=== PATIENT | male | born 1940 | race Caucasian/White ===

== ENCOUNTER 2021-11-17 15:06 | Inpatient (IN) ==
--- NOTE | 2021-11-17 15:45 | Internal Med History&Physical ---
HPI History of Present Illness Patient information: Note initiated : 11/17/21 at 3:35 pm Service Date, if different from initiated Date: [] Patient: Bryan Christianson a 81 y/o M admitted on for Urosepsis. Chief Complaint: [fever and chills] Chief complaint: fever and chills History of present illness: Mr. Christianson is a 81 year old M history of ischemic cardiomyopathy, presenting to an ER in [place], [place] with a chief complaint of subjective fever and chills. The diagnosis of right 3 mm distal ureteral stone with obstructions with resultant right hydroureter and hydronephrosis, acute kidney injury, urosepsis will call. Patient denies any chest pain and serum troponin downtrending. Outside ER physician spoke with our urologist Dr. Sanchez who agreed to take the patient to the OR for ureteral stone retrieval. I am going to admit the patient for further management of urosepsis as well as acute kidney injury. Constitutional Constitutional: Present chills, fever(s) and weakness; Absent excessive sweating or fatigue EENT Eyes: Absent blurry vision, change in vision, loss of vision or other visual dis turbances Ears: Absent decreased hearing or tinnitus Nose, mouth and throat: Absent abnormal hearing, dry mouth, headache(s), nasal congestion or sore throat Cardiovascular Cardiovascular: Absent chest pain, chest pain at rest, edema, irregular heart rhythm or palpatations Respiratory Respiratory: Absent cough, dyspnea or wheezing Gastrointestinal Gastrointestinal: Absent abdominal pain, constipation, diarrhea, nausea or vomiting Musculoskeletal Musculoskeletal: Absent back pain, deformity, limited range of motion, muscle cramps, muscle weakness or numbness Integumentary Integumentary: Absent lesions, rash or wounds Neurological Neurological: Absent focal weakness, headache(s) or numbness Psychiatric Psychiatric: Absent anxiety, depression or hallucinations PFSH PFSH All Active Problems (Updated 11/17/21 @ 15:42 by Shar Jay MD) Ischemic cardiomyopathy (Acute) Stage 1 acute kidney injury (Acute) Hydronephrosis of right kidney (Acute) Right distal ureteral calculus (Acute) Severe sepsis (Acute) UTI (urinary tract infection) (Acute) EXAM Constitutional General appearance: cooperative and no acute distress Head Head exam: Present atraumatic and normocephalic Eye Eye exam: Present EOMI and PERRL ENT ENT exam: Present mucous membranes moist, normal exam and normal external ear exam Neck Neck exam: Present normal inspection; Absent lymphadenopathy, tenderness or thyromegaly Respiratory Respiratory exam: Absent accessory muscle use, respiratory distress or wheezes Cardiovascular Cardiovascular exam: Present normal rate and rhythm; Absent JVD GI/Abdominal GI/Abdominal exam: Present normal bowel sounds and soft; Absent organomegaly or tenderness Rectal Rectal exam: Present deferred Extremities Exam Extremities exam: Present full ROM, normal capillary refill and normal inspectio n; Absent tenderness Neurological Exam Neurological exam: Present alert, CN II-XII intact and oriented X3; Absent motor sensory deficit Psychiatric Psychiatric exam: Present normal affect and normal mood; Absent anxious or depressed Skin Skin exam: Present dry and intact A/P Assessment and plan (1) UTI (urinary tract infection): Status: Acute (2) Severe sepsis: Status: Acute (3) Right distal ureteral calculus: Status: Acute (4) Hydronephrosis of right kidney: Status: Acute (5) Stage 1 acute kidney injury: Status: Acute (6) Ischemic cardiomyopathy: Status: Acute Narrative A/P Narrative: Assessment and Plans: 1. Right distal ureteral stone with obstruction and resultant right hydronephrosis and hydroureter: Inpatient PCU Consulting Dr. Sanchez for surgical management stone retrieval 2. UTI with severe sepsis: Serial lactic acid Procalcitonin Blood culture Urine culture cbc w/ auto diff in the morning to trend WBC s/p 3L fluid bolus given in the ED, to be followed by NS@100cc/hr Rocephin 3. Stage 1 acute kidney injury: Avoid nephrotoxic agents s/p 3L fluid bolus given in the ED, to be followed by NS@100cc/hr CMP in the morning to trend kidney functions 4. Ischemic cardiomyopathy, recent: Currently asymptomatic, no chest pain no shortness of breath Serial troponin Serial ECG GI ppx: not currently indicated DVT ppx: SCDs Code status: Full Prognosis: Extremely guarded Disposition: inpatient PCU Time Spent With Patient Time: Total time spent is greater than 50% in coordination of care (as documented) at patient's floor/unit and/or counseling patient: Total time spent with greater than 50% in coordination of care (as documented) at patient's floor/unit and/or counseling patient:: 50 - 70 minutes
[2021-11-17] MEDS ORDERED: SENNOSIDES 1 TABLET PO PRN (17:12)
[2021-11-17] MEDS ORDERED: oxyCODONE/APAP 5/325MG TABLET PO PRN (17:12)
[2021-11-17] MEDS ORDERED: IPRATROPIUM/ALBUTEROL 3 ML AMPUL.NEB NEB PRN ×2 (17:12→19:38)
[2021-11-17] MEDS ORDERED: LACTULOSE 20 GM/30 ML ORAL.SOL PO PRN (17:12)
[2021-11-17] MEDS ORDERED: ONDANSETRON 4 MG/2 ML VIAL IV PRN ×2 (17:12→19:38)
[2021-11-17] MEDS ORDERED: morphine 2 MG/ML VIAL IV PRN (17:12)
[2021-11-17] MEDS ORDERED: cefTRIAXone 2 GM in DEXTROSE 5% IN WATER 50 ML IV SCH (17:12)
[2021-11-17] MEDS ORDERED: cefTRIAXone 1 GM VIAL IV ONE (17:26)
--- NOTE | 2021-11-17 17:36 | Urology History & Physical ---
HPI History of Present Illness Patient information: Note initiated : 11/17/21 at 5:31 pm Service Date, if different from initiated Date: [] Patient: Bryan Christianson 81 y/o M admitted on for Urosepsis. Chief Complaint: [Urosepsis and right distal ureteral stone with obstruction] Chief complaint: Urosepsis and right distal ureteral stone with obstruction History of present illness: Mr. Christianson is a 81 year old male who was transferred from [place] today with a history of urosepsis and a finding of a 3 mm right distal ureteral vesicle junction stone with proximal right hydronephrosis and right flank pain. He was admitted to our hospitalist service. He has a history of ischemic cardiomyopathy and presented to the ER in [place] with complaints of fever and chills. He was seen to have an acute kidney injury with urosepsis. I have personally reviewed his films. Review of Systems All systems: reviewed and no additional remarkable complaints except as stated Constitutional Constitutional: Present chills and fever(s) Genitourinary Genitourinary: flank pain PFSH PFSH All Active Problems (Updated 11/17/21 @ 17:34 by Singh Sanchez MD) Right flank pain (Acute) UTI (urinary tract infection) (Acute) Severe sepsis (Acute) Right distal ureteral calculus (Acute) Hydronephrosis of right kidney (Acute) Stage 1 acute kidney injury (Acute) Ischemic cardiomyopathy (Acute) MEDS/ALLERGIES Home Medications and Allergies Home Medications Medication Instructions Recorded Confirmed Type amiodarone 200 mg tablet (Pacerone) 200 tab PO BID 11/17/21 11/17/21 History apixaban 5 mg tablet (Eliquis) 1 tab PO BID 11/17/21 11/17/21 History atorvastatin 40 mg tablet (Lipitor) 40 tab PO QAM 11/17/21 11/17/21 History clopidogrel 75 mg tablet (Plavix) 1 tab PO QDAY 11/17/21 11/17/21 History nitroglycerin 0.4 mg sublingual 0.4 tab sublingual Q5MINP PRN 11/17/21 11/17/21 History tablet (Nitrostat) Angina oxycodone 5 mg tablet (Roxicodone) 5 tab PO Q6HP PRN Pain 11/17/21 11/17/21 History pantoprazole 40 mg tablet,delayed 1 tab PO BID 11/17/21 11/17/21 History release (Protonix) potassium chloride 20 mEq 20 meq PO BIDAC 11/17/21 11/17/21 History tablet,extended release(part/cryst) (Klor-Con M) Allergies Allergy/AdvReac Type Severity Reaction Status Date / Time codeine AdvReac Mild Itching Verified 11/17/21 17:27 hydrocodone AdvReac Mild Itching Verified 11/17/21 17:27 Physical Examination General physical appearance General physical exam: well developed and well nourished Head Head exam IM: Present atraumatic, normal inspection and normocephalic Neck Neck exam: trachea midline Cardiovascular Cardiovascular exam IM: Present normal rate and rhythm Respiratory Respiratory exam: normal expansion, normal respiratory effort and clear to auscultation Abdomen Abdomen: Present soft and non tender Results Labs Labs: All other labs normal. Imaging CT scan - abdomen: report reviewed and image reviewed CT scan - pelvis: report reviewed and image reviewed A/P Assessment and plan (1) Right distal ureteral calculus: Status: Acute (2) Hydronephrosis of right kidney: Status: Acute (3) Right flank pain: Status: Acute (4) Severe sepsis: Status: Acute Sepsis Sepsis Identified: Yes Time Zero: At [facility] Narrative A/P Narrative: Bryan is an 81-year-old male with history of urosepsis and an obstructing right distal ureteral stone causing right flank pain and right hydronephrosis. He was transferred here from the ER in [place], [place] due to no access to urology. The patient was admitted to our hospitalist service. We discussed going to the operating room urgently for cystoscopy, right retrograde pyelogram, right ureteroscopy, possible right ureteral stone basketing, and right ureteral stent placement. He also has a history consistent with ischemic cardiomyopathy. he appeared to have demand ischemic non-q wave DE. We discussed going to the operating room and under general anesthesia, as an outpatient, performing cystoscopy, right retrograde pyelogram, right ureteroscopy, right laser lithotripsy, right ureteral stone basketing, and right ureteral stent placement. I discussed the procedure with the patient. We discussed possible risks and side effects including, but not limited to: bleeding, infection, damage to the urethra and to the bladder, damage to the right ureter and right kidney, postoperative urgency and frequency, postoper ative hematuria, incomplete treatment of the stone, need for further treatment and/or surgery, small risks of heart attack, stroke and , and risks of anesthesia that he will discuss separately with the anesthesia provider prior to the procedure. He understands that at the time of the procedure we will place a right ureteral stent. I explained what this is and that it is a temporary device. This will need to be removed in the office approximately 1 week after definitive treatment of the stone. He understands the procedure and its associated risks. The patient agrees and a signed consent form was obtained. Time Spent With Patient Time: Total time spent is greater than 50% in coordination of care (as documented) at patient's floor/unit and/or counseling patient: Total time spent with greater than 50% in coordination of care (as documented) at patient's floor/unit and/or counseling patient:: 15 - 24 minutes Critical Care Time: No
[2021-11-17] MEDS: 0.9 % SODIUM CHLORIDE 1,000 ML IV SCH (17:57)
--- NOTE | 2021-11-17 18:51 | XRay Report ---
INDICATION: pre surgery room 120 d TECHNIQUE: AP portable semiupright chest x-ray COMPARISON: Previous chest x-ray dated 11/16/2021 FINDINGS: Lungs:No parenchymal consolidation or mass. Heart, vascular:No significant cardiomegaly. Pulmonary vascularity is normal. No pulmonary edema or pulmonary congestion Mediastinum, alexus:No mediastinal widening. No hilar mass Pleura:No pleural fluid. No pleural-based mass or calcification Skeletal:Negative. IMPRESSION: No acute abnormality Interpreted and Authenticated by: Darinel Gabriel 11/17/21
[2021-11-17] MEDS ORDERED: IOVERSOL 20 ML VIAL IV ONE (19:00)
[2021-11-17] MEDS ORDERED: LIDOCAINE HCL/PF 100 MG/5 ML SYRINGE IV ONE (19:17)
[2021-11-17] MEDS ORDERED: PROPOFOL 200 MG/20 ML VIAL IV ONE (19:17)
[2021-11-17] MEDS ORDERED: PHENYLephrine 1 MG/10 ML SYRINGE (ANEST) ONE (19:17)
[2021-11-17] MEDS ORDERED: ONDANSETRON 4 MG/2 ML VIAL ONE (19:17)
[2021-11-17] MEDS ORDERED: KETAMINE 50 MG/ML Syringe (ANEST) IV ONE (19:17)
[2021-11-17] MEDS ORDERED: ePHEDrine 50 MG/5 ML SYRINGE (ANEST) IV ONE (19:17)
[2021-11-17] MEDS ORDERED: fentaNYL 100 MCG/2 ML VIAL IV ONE (19:17)
[2021-11-17] MEDS ORDERED: MAGNESIUM SULFATE 2 GM/50 ML BAG IV ONE (19:17)
[2021-11-17] MEDS ORDERED: NALOXONE HCL 0.4 MG/ML VIAL IV PRN (19:38)
[2021-11-17] MEDS ORDERED: diphenhydrAMINE 50 MG/ML VIAL IV PRN (19:38)
[2021-11-17] MEDS ORDERED: PROMETHAZINE 25 MG/ML VIAL IV PRN (19:38)
[2021-11-17] MEDS ORDERED: ACETAMINOPHEN 1,000 MG/100 ML BAG IV ONE ×2 (19:38→20:26)
[2021-11-17] MEDS ORDERED: LACTATED RINGERS 250 ML IV PRN (19:38)
[2021-11-17] MEDS ORDERED: MEPERIDINE 25 MG/ML VIAL IV PRN (19:38)
[2021-11-17] MEDS ORDERED: LACTATED RINGERS 1,000 ML IV SCH (19:45)
--- NOTE | 2021-11-17 20:56 | Operative Note ---
Brief Operative Note Date of procedure: 11/17/21 Pre-op diagnosis: Urosepsis secondary to obstructing 3 mm right distal ureteral stone Post-op diagnosis: same Procedure: Difficult cystoscopy, right retrograde pyelogram, right ureteroscopy, right ureteral stone basketing, and right ureteral stent placement. Grafts/Implants: Yes (6 x 26 cm right ureteral stent with no string and 22 Gibraltarian Eden catheter ) Anesthesia: GLMA Findings: 3 mm obstructing right distal ureteral stone removed Complications: none Surgeon: Singh Sanchez Estimated blood loss (cc): 20 Specimens Removed/Pathology: other (Stone for analysis) Condition: critical Disposition: ICU Operative Note Operative Note: After obtaining informed consent from the patient, he was brought to the operating room was placed prone on the operating table. General anesthesia was provided. He was repositioned in a dorsolithotomy position was prepped and draped in usual sterile fashion. Attention was directed to the urethral meatus where a 21 Gibraltarian cystoscope was passed per urethra into the bladder. The bladder was inspected and seen to have severe trabeculation with the formation of numerous saccules. Ureteral orifices were very difficult were identified due to bleeding from the bladder neck. For over an hour I made multiple attempts to cannulate the right ureteral orifice. On 2 occasions I was able to get an opening ureteral catheter into the right ureteral orifice and perform a right retrograde pyelogram which showed just a tiny wisp of contrast going alongside what appeared to be an obstructing stone. There was proximal ureterectasis and hydronephrosis. Attempts were made to pass a 0.35 Gibraltarian Sensor wire and it 0.35 Gibraltarian angled tipped Glidewire through the opening ureteral catheter and alongside the stone and these attempts were unsuccessful. I was ready to give up when I decided to give it 1 more try and I was able to manipulate the angle- tip Glidewire through the right ureteral orifice and into what appeared to be the right ureter. I passed a dual-lumen catheter over this wire and performed a right retrograde pyelogram and it appeared to be in proper position. I then removed the cystoscope leaving the wire in place. I passed a 6 Gibraltarian semirigid long ureteroscope alongside the wire and into the right ureteral orifice with difficulty. Approximately 2 cm above the right ureteral orifice I identified a round 3 mm stone that appeared to be obstructing using a 1.9 Gibraltarian nitinol tipless basket the stone was grasped and removed from the bladder intact and passed off the table as a specimen for stone analysis. As I was at that point certainly the wire was in the proper position I replaced it with a 0.35 Gibraltarian sensor wire. I then backloaded the wire through the 21 Gibraltarian cystoscope which was passed into the bladder. A 6 Gibraltarian by 26 cm regular stent with no string was then passed over the wire and under fluoroscopic guidance into the right upper pole. The wire was removed leaving a good curl the right upper pole and a good curl within the bladder. Bladder was irrigated and drained. There was still bleeding from the bladder neck as the patient is on Eliquis and clopidogrel. A 22 Gibraltarian Eden catheter was then placed and balloon was inflated with 10 mL of sterile water and this was placed at the bladder neck to help tamponade the bleeding. The catheter was then hand irrigated until it ran clear. This was placed to gravity drainage. The patient was then returned to the supine position. He was awakened returned to the recovery room in critical condition.
[2021-11-17] MEDS: 0.9 % SODIUM CHLORIDE 10 ML SYRINGE IV SCH (22:10)
[2021-11-18] MEDS: DOCUSATE SODIUM 100 MG CAPSULE PO SCH ×3 (00:12→20:09)
[2021-11-18] MEDS: 0.9 % SODIUM CHLORIDE 10 ML SYRINGE IV SCH ×5 (00:12→20:09)
--- NOTE | 2021-11-18 05:51 | XRay Report ---
INDICATION: CYSTOSCOPY WITH RETROGRADE PYELOGRAMS RIGHT, STENT TECHNIQUE: Intraoperative fluoroscopy and spot films utilized by Dr. Sanchez. 2.2 minutes fluoroscopy and 24.2 mCi exposure used. Right ureteral stent was placed IMPRESSION: Intraoperative fluoroscopy and spot films Interpreted and Authenticated by: Darinel Gabriel 11/18/21
[2021-11-18] MEDS: 0.9 % SODIUM CHLORIDE 1,000 ML IV SCH (07:01)
[2021-11-18 08:26] LABS: Phosphorous 3.9 mg/dL (2.5-4.5)
[2021-11-18 08:32] LABS: ALT/SGPT 47 U/L (<40); AST/SGOT 53 U/L (<40); Albumin 2.2 gm/dL (3.2-5.2); Albumin/Globulin Ratio 1.2 (1.0-2.3); Alkaline Phosphatase 107 U/L (39-117); Bilirubin,Total 0.3 mg/dL (0.1-1.0); Blood Urea Nitrogen 23 mg/dL (8-23); Calcium 7.3 mg/dL (8.6-10.4); Carbon Dioxide 19 mmol/L (22-30); Chloride 103 mmol/L (96-108); Globulin 1.9 gm/dL (2.2-3.7); Glomerular Filtration Rate 70; Glucose 148 mg/dL (70-105)
[2021-11-18] MEDS: cefTRIAXone 2 GM in DEXTROSE 5% IN WATER 50 ML IV SCH (09:25)
[2021-11-18 09:31] LABS: Basophils # (Auto) 0 K/mcL (0.00-0.30); Basophils % (Auto) 0 % (0.0-2.0); Eosinophils # (Auto) 0 K/mcL (0.00-0.70); Eosinophils % (Auto) 0 % (0.0-7.0); Hematocrit 32.7 % (40.1-51.0); Hemoglobin 10.3 g/dL (13.7-17.5); Lymphocytes # (Auto) 0.33 K/mcL (1.50-4.80); Lymphocytes % (Auto) 2.6 % (15.5-49.0); Mean Cell Volume 90.1 fL (80.0-100.0); Mean Corpuscular HGB Conc 31.5 g/dL (31.0-36.0); Mean Platelet Volume 12.4 fL (8.8-12.5); Monocytes # (Auto) 0.42 K/mcL (0.10-0.90); Monocytes % (Auto) 3.3 % (1.0-12.0); Neutrophils % (Auto) 92.1 % (38.0-78.0); Platelet Count 82 K/mcL (140-440); RBC 3.63 M/mcL (4.63-6.08); Red Cell Distribution Width 14.7 % (11.5-14.5); WBC 12.7 K/mcL (4.5-11.0)
[2021-11-18] MEDS: POTASSIUM CHLORIDE 20 MEQ TABLET PO SCH ×2 (10:54→16:57)
--- NOTE | 2021-11-18 11:59 | Internal Med Progress Note ---
SUBJECTIVE Subjective Patient information: Note initiated : 11/18/21 at 11:54 am Service Date, if different from initiated Date: [] Patient: Bryan Christianson 81 y/o M admitted on 11/17/21 for Urosepsis. Chief Complaint: [] Interval history: Mr. Christianson is a 81 year old M history of ischemic cardiomyopathy, presenting to an ER in [place], [place] with a chief complaint of subjective fever and chills. The diagnosis of right 3 mm distal ureteral stone with obstructions with resultant right hydroureter and hydronephrosis, acute kidney injury, uro sepsis will call. Patient denies any chest pain and serum troponin downtrending. Outside ER physician spoke with our urologist Dr. Sanchez who agreed to take the patient to the OR for ureteral stone retrieval. I am going to admit the patient for further management of urosepsis as well as acute kidney injury. 11/18: s/p Cystoscopy with ureteral stone retrieval and right ureteral stent placement. Afebrile overnight. Blood and urine cultures no growth to date. Serial troponin 0.03-->0.02-->0.02. Patient denies any pain or discomfort. He denies any fever chills or diaphoresis. Continue manual hourly irrigation severe Eden catheter. Continue Rocephin and normal saline at 100 cc/h. Continue to monitor for culture results. Transfer from PCU to med surg Constitutional Vitals: Vital Signs Temp Pulse Resp BP Pulse Ox O2 Del Method O2 Flow Rate 36.1 C 60 19 112/67 95 2 11/18/21 08:01 11/18/21 08:01 11/18/21 08:01 11/18/21 08:01 11/18/21 08:01 11/18/21 08:43 11/18/21 08:43 Period Temp Pulse Resp BP Sys/Barkley Pulse Ox O2 Del Method O2 Flow Rate Last 24 Hr 36.0 C-36.8 C 57-65 13-24 102-118/57-68 89-100 Nasal Cannula- Room Air 0-6 Intake and Output 11/17/21 11/18/21 11/18/21 21:59 05:59 13:59 Intake Total 1755 0 1227 Output Total 20 325 220 Balance 1735 -325 1007 Weight 72.393 kg Intake & Output: Intake & Output 11/17/21 11/18/21 11/18/21 21:59 05:59 13:59 Intake Total 1755 0 1227 Output Total 20 325 220 Balance 1735 -325 1007 Weight 72.393 kg Intake: IV 155 0 927 Sodium Chloride 0.9% 1,000 ml @ 55 0 877 100 mls/hr IV .Q10H RADHA Rx#: [id number] Rocephin 2 gm In Dextrose 5% in 50 Water 50 ml @ 100 mls/hr IV Q24H RADHA Rx#:[id number] Oral 0 300 IV - Manual Only 1600 Output: Urine Catheter Amount 325 220 Uretheral (Eden) 180 Estimated Blood Loss 20 Other: Urine Appearance Hematuria Hematuria Hematuria Small Blood Clots Small Blood Clots Large Blood Clots Uretheral (Eden) Clear Hematuria Hematuria Small Blood Clots Small Blood Clots Urine Color Dark Red Medium Red Medium Red Dark Red Uretheral (Eden) Dark Breonna Dark Red Light Red Head Head exam: Present atraumatic and normal inspection Eye Eye exam: Present normal appearance ENT ENT exam: Present mucous membranes moist, normal exam and normal external ear exam Neck Neck exam: Present normal inspection Respiratory Respiratory exam: Present normal respiratory exam Cardiovascular Cardiovascular exam: Present normal rate and rhythm GI/Abdominal GI/Abdominal exam: Present normal bowel sounds Additional comments: Eden catheter in place Back Exam Back exam: Present normal inspection Neurological Exam Neurological exam: Present alert and oriented X3 Skin Skin exam: Present intact and warm OBJ DATA Labs CBC & Chem 7: 11/18/21 05:20 11/18/21 05:20 Labs: Abnormal Lab Results 11/18/21 11/18/21 11/17/21 05:20 05:20 17:57 WBC 12.7 H RBC 3.63 L Hgb 10.3 L Hct 32.7 L RDW 14.7 H Plt Count 82 L Immature Gran % (Auto) 2.0 H Neut % (Auto) 92.1 H Lymph % (Auto) 2.6 L Lymph # (Auto) 0.33 L Immature Gran # 0.25 H Absolute Neutrophils 11.74 H Carbon Dioxide 19 L Glucose 148 H Calcium 7.3 L Magnesium 2.6 H AST 53 H ALT 47 H Troponin T Total Protein 4.1 L Albumin 2.2 L Globulin 1.9 L Procalcitonin 32.97 H 11/17/21 17:57 WBC RBC Hgb Hct RDW Plt Count Immature Gran % (Auto) Neut % (Auto) Lymph % (Auto) Lymph # (Auto) Immature Gran # Absolute Neutrophils Carbon Dioxide Glucose Calcium Magnesium AST ALT Troponin T 0.03 H Total Protein Albumin Globulin Procalcitonin Meds: Medications Albuterol/Ipratropium (Ipratropium/Albuterol 3 Ml Ampul.Neb) 3 ml NEB Q4HRT PRN PRN Reason: Wheezing Docusate Sodium (Docusate Sodium 100 Mg Capsule) 100 mg PO BID [facility] Last Admin: 11/18/21 09:25 Dose: 100 mg Sodium Chloride (Sodium Chloride 0.9%) 1,000 mls @ 100 mls/hr IV .Q10H [facility] Last Admin: 11/18/21 07:01 Dose: 100 mls/hr Ceftriaxone Sodium 2 gm/ (Dextrose) 50 mls @ 100 mls/hr IV Q24H [facility]; Protocol Last Infusion: 11/18/21 09:55 Dose: Infused Lactulose (Lactulose 20 Gm/30 Ml Oral.Lida) 10 gm PO DAILYP PRN PRN Reason: Constipation Morphine Sulfate (Morphine 2 Mg/Ml Vial) 4 mg IV Q4HP PRN PRN Reason: Opioid Reversal Ondansetron HCl (Ondansetron 4 Mg/2 Ml Vial) 4 mg IV Q4HP PRN; Protocol PRN Reason: Nausea And Vomiting Oxycodone/Acetaminophen (Oxycodone/Apap 5/325mg Tablet) 1 tab PO Q4HP PRN; Protocol PRN Reason: Per Pain Protocol Last Admin: 11/18/21 00:17 Dose: 1 tab Potassium Chloride (Potassium Chloride 20 Meq Tablet) 20 meq PO BIDCC [facility] Last Admin: 11/18/21 10:54 Dose: 20 meq Senna (Sennosides 1 Tablet) 2 tab PO HSP PRN PRN Reason: Constipation Sodium Chloride (0.9 % Sodium Chloride 10 Ml Syringe) 10 ml IV Q8 [facility] Last Admin: 11/18/21 05:06 Dose: Not Given Sodium Chloride (0.9 % Sodium Chloride 10 Ml Syringe) 10 ml IV Q8 [facility] Last Admin: 11/18/21 06:49 Dose: Not Given A/P Assessment and plan (1) UTI (urinary tract infection): Status: Acute (2) Severe sepsis: Status: Acute (3) Right distal ureteral calculus: Status: Acute (4) Hydronephrosis of right kidney: Status: Acute (5) Stage 1 acute kidney injury: Status: Acute (6) Ischemic cardiomyopathy: Status: Acute (7) Hypokalemia: Status: Acute Narrative A/P Narrative: Assessment and Plans: 1. Right distal ureteral stone with obstruction and resultant right hydronephrosis and hydroureter: Inpatient PCU Consulting Dr. Sanchez for surgical management stone retrieval 2. UTI with severe sepsis: Serial lactic acid 1.1 Procalcitonin 32.97 Blood culture, no growth to date Urine culture, no growth to date cbc w/ auto diff in the morning to trend WBC s/p 3L fluid bolus given in the ED, to be followed by NS@100cc/hr Rocephin 3. Stage 1 acute kidney injury: Avoid nephrotoxic agents s/p 3L fluid bolus given in the ED, to be followed by NS@100cc/hr CMP in the morning to trend kidney functions 4. Ischemic cardiomyopathy, recent: Currently asymptomatic, no chest pain no shortness of breath Serial troponin 0.03-->0.02-->0.02 Serial ECG 5. Hypokalemia: Potassium chloride oral replacement CMP in the morning to trend serum potassium level Also check serum Mg level and replace if needed GI ppx: Protonix DVT ppx: Eliquis Code status: DNR Prognosis: Guarded Disposition: inpatient med surg Time Spent With Patient Time: Total time spent is greater than 50% in coordination of care (as documented) at patient's floor/unit and/or counseling patient: QUALITY VTE Deep Vein Thrombosis/Pulmonary Embolism Present on Admission: No
[2021-11-18] MEDS ORDERED: NITROGLYCERIN 0.4 MG TAB.SUBL SL PRN (12:21)
--- NOTE | 2021-11-18 13:49 | Urology Progress Note ---
SUBJECTIVE Subjective Patient information: Note initiated : 11/18/21 at 1:45 pm Service Date, if different from initiated Date: [] Patient: Bryan Christianson 81 y/o M admitted on 11/17/21 for Urosepsis. Chief Complaint: Right renal stone with obstruction and urosepsis Principal diagnosis: Right renal stone with obstruction and urosepsis Interval history: Bryan is an 81-year-old male who is postoperative day #1 status post stone basketing of a 3 mm right distal ureteral stone. Right ureteral stent was placed. Eden catheter was left in place. He is doing much better today. He is alert and oriented. He has no complaints. He is quite weak. He is undergoing physical therapy. He reports that prior to his recent hospitalization he had no difficulties with urination and reported a good urinary stream. His urine also appears to be clearing today. Constitutional Vitals: Vital Signs Temp Pulse Resp BP Pulse Ox O2 Del Method O2 Flow Rate 97.2 F 64 21 98/57 93 2 11/18/21 12:01 11/18/21 12:01 11/18/21 12:01 11/18/21 12:01 11/18/21 12:01 11/18/21 12:01 11/18/21 08:43 Period Temp Pulse Resp BP Sys/Barkley Pulse Ox O2 Del Method O2 Flow Rate Last 24 Hr 96.8 F-98.3 F 57-66 13-24 98-129/57-79 89-100 Nasal Cannula- Room Air 0-6 Intake and Output 11/17/21 11/18/21 11/18/21 21:59 05:59 13:59 Intake Total 1755 0 1692 Output Total 20 325 220 Balance 1735 -325 1472 Weight 72.393 kg Intake & Output: Intake & Output 11/17/21 11/18/21 11/18/21 21:59 05:59 13:59 Intake Total 1755 0 1692 Output Total 20 325 220 Balance 1735 -325 1472 Weight 72.393 kg Intake: IV 155 0 1392 Sodium Chloride 0.9% 1,000 ml @ 55 0 1342 100 mls/hr IV .Q10H [facility] Rx#: [id number] Rocephin 2 gm In Dextrose 5% in 50 Water 50 ml @ 100 mls/hr IV Q24H [facility] Rx#:[id number] Oral 0 300 IV - Manual Only 1600 Output: Urine Catheter Amount 325 220 Uretheral (Eden) 180 Estimated Blood Loss 20 Other: Urine Appearance Hematuria Hematuria Hematuria Small Blood Clots Small Blood Clots Large Blood Clots Uretheral (Eden) Clear Hematuria Hematuria Small Blood Clots Small Blood Clots Urine Color Dark Red Medium Red Medium Red Dark Red Uretheral (Eden) Dark Breonna Dark Red Light Red Urine Odor Normal General appearance: average body habitus, cooperative, no acute distress and thin Head Head exam: Present atraumatic, normal inspection and normocephalic Expanded Exam Urine Appearance: Clear Urine Color: Red Brown Psychiatric Psychiatric exam: Present normal affect and normal mood A/P Assessment and plan (1) Hydronephrosis of right kidney: Status: Acute (2) Right distal ureteral calculus: Status: Acute (3) Right flank pain: Status: Acute Narrative A/P Narrative: Bryan is an 81-year-old male was admitted yesterday after cystoscopy, right retrograde pyelogram, right ureteroscopy with right ureteral stone basketing, and right ureteral stent placement. He did well postoperatively. A Eden catheter was left in place due to hematuria as the patient is anticoagulated. Hematuria is now resolving. He denies having had any difficulty with urination prior to surgery. We discussed removing the Eden catheter. He is currently undergoing physical therapy. Overall he appears to be doing much better. Time Spent With Patient Time: Total time spent is greater than 50% in coordination of care (as documented) at patient's floor/unit and/or counseling patient: Total time spent with greater than 50% in coordination of care (as documented) at patient's floor/unit and/or counseling patient:: less than 15 minutes
[2021-11-18] MEDS: AMIODARONE HCL 200 MG TABLET PO SCH (16:57)
[2021-11-18] MEDS: PANTOPRAZOLE 40 MG TABLET PO SCH (16:57)
[2021-11-18] MEDS: APIXABAN 5 MG TABLET PO SCH (20:09)
[2021-11-19] MEDS: 0.9 % SODIUM CHLORIDE 10 ML SYRINGE IV SCH ×3 (05:01→20:40)
[2021-11-19 06:57] LABS: Basophils # (Auto) 0.02 K/mcL (0.00-0.30); Basophils % (Auto) 0.1 % (0.0-2.0); Eosinophils # (Auto) 0.01 K/mcL (0.00-0.70); Eosinophils % (Auto) 0.1 % (0.0-7.0); Hematocrit 32.5 % (40.1-51.0); Hemoglobin 10.5 g/dL (13.7-17.5); Lymphocytes # (Auto) 0.89 K/mcL (1.50-4.80); Lymphocytes % (Auto) 6.5 % (15.5-49.0); Mean Cell Volume 89.3 fL (80.0-100.0); Mean Corpuscular HGB Conc 32.3 g/dL (31.0-36.0); Mean Platelet Volume 12.8 fL (8.8-12.5); Monocytes # (Auto) 0.79 K/mcL (0.10-0.90); Monocytes % (Auto) 5.8 % (1.0-12.0); Neutrophils % (Auto) 86.5 % (38.0-78.0); Platelet Count 115 K/mcL (140-440); RBC 3.64 M/mcL (4.63-6.08); Red Cell Distribution Width 14.6 % (11.5-14.5); WBC 13.7 K/mcL (4.5-11.0)
[2021-11-19 07:22] LABS: ALT/SGPT 40 U/L (<40); AST/SGOT 32 U/L (<40); Albumin 1.9 gm/dL (3.2-5.2); Albumin/Globulin Ratio 0.9 (1.0-2.3); Alkaline Phosphatase 108 U/L (39-117); Bilirubin,Total 0.3 mg/dL (0.1-1.0); Blood Urea Nitrogen 21 mg/dL (8-23); Calcium 7.5 mg/dL (8.6-10.4); Carbon Dioxide 24 mmol/L (22-30); Chloride 105 mmol/L (96-108); Glomerular Filtration Rate 88; Glucose 112 mg/dL (70-105); Phosphorous 2.1 mg/dL (2.5-4.5)
[2021-11-19] MEDS: AMIODARONE HCL 200 MG TABLET PO SCH ×2 (08:18→16:53)
[2021-11-19] MEDS: APIXABAN 5 MG TABLET PO SCH ×2 (08:18→20:39)
[2021-11-19] MEDS: CLOPIDOGREL 75 MG TABLET PO SCH (08:18)
[2021-11-19] MEDS: PANTOPRAZOLE 40 MG TABLET PO SCH ×2 (08:18→16:53)
[2021-11-19] MEDS: ATORVASTATIN 40 MG TABLET PO SCH (08:18)
[2021-11-19] MEDS: DOCUSATE SODIUM 100 MG CAPSULE PO SCH ×2 (08:18→20:39)
[2021-11-19] MEDS: POTASSIUM CHLORIDE 20 MEQ TABLET PO SCH ×2 (08:18→16:53)
--- NOTE | 2021-11-19 10:31 | Internal Med Progress Note ---
SUBJECTIVE Subjective Patient information: Note initiated : 11/19/21 at 10:26 am Service Date, if different from initiated Date: [] Patient: Bryan Christianson 81 y/o M admitted on 11/17/21 for Urosepsis. Chief Complaint: [] Principal diagnosis: Right renal stone with obstruction and urosepsis Interval history: Mr. Christianson is a 81 year old M history of ischemic cardiomyopathy, presenting to an ER in [place], [place] with a chief complaint of subjective fever and chills. The diagnosis of right 3 mm distal ureteral stone with obstructions with resultant right hydroureter and hydronephrosis, acute kidney injury, urosepsis will call. Patient denies any chest pain and serum troponin downtrending. Outside ER physician spoke with our urologist Dr. Sanchez who agreed to take the patient to the OR for ureteral stone retrieval. I am going to admit the patient for further management of urosepsis as well as acute kidney injury. 11/18: s/p Cystoscopy with ureteral stone retrieval and right ureteral stent placement. Afebrile overnight. Blood and urine cultures no growth to date. Serial troponin 0.03-->0.02-->0.02. Patient denies any pain or discomfort. He denies any fever chills or diaphoresis. Continue manual hourly irrigation severe Eden catheter. Continue Rocephin and normal saline at 100 cc/h. Continue to monitor for culture results. Transfer from PCU to med surg 11/19: There was no major overnight events. Afebrile overnight. Blood and urine cultures no growth to date. Denies penile or back pain. Denies fever, chills, or sweating. Denies nausea or vomiting. Saline lock. D/c Eden catheter. Continue Rocephin while monitoring for culture results. Physical evaluation and treatment for placement planning. Constitutional Vitals: Vital Signs Temp Pulse Resp BP Pulse Ox O2 Del Method O2 Flow Rate 36.4 C 63 20 108/66 93 2 11/19/21 08:01 11/19/21 08:01 11/19/21 08:01 11/19/21 08:01 11/19/21 08:01 11/19/21 09:58 11/19/21 04:01 Period Temp Pulse Resp BP Sys/Barkley Pulse Ox O2 Del Method O2 Flow Rate Last 24 Hr 36.2 C-36.9 C 61-65 16-21 98-108/55-66 93-96 Nasal Cannula- Room Air 2 Intake and Output 11/18/21 11/19/21 11/19/21 21:59 05:59 13:59 Intake Total 700 Output Total 325 300 200 Balance 375 -300 -200 Weight 76.204 kg Intake & Output: Intake & Output 11/18/21 11/19/21 11/19/21 21:59 05:59 13:59 Intake Total 700 Output Total 325 300 200 Balance 375 -300 -200 Weight 76.204 kg Intake: Oral 700 Output: Urine Catheter Amount 325 300 200 Other: Meal Dinner Percent of Meal Consumed 50% Feeding Ability Assist with Tray Set Up Urine Appearance Hematuria Hematuria Clear Uretheral (Eden) Hematuria Small Blood Clots Urine Color Medium Red Medium Red Red Brown Uretheral (Eden) Medium Red Head Head exam: Present atraumatic and normal inspection Eye Eye exam: Present normal appearance ENT ENT exam: Present mucous membranes moist, normal exam and normal external ear exam Neck Neck exam: Present normal inspection Respiratory Respiratory exam: Present normal respiratory exam Cardiovascular Cardiovascular exam: Present normal rate and rhythm GI/Abdominal GI/Abdominal exam: Present normal bowel sounds Additional comments: Eden catheter in place Back Exam Back exam: Present normal inspection Neurological Exam Neurological exam: Present alert and oriented X3 Skin Skin exam: Present intact and warm OBJ DATA Labs CBC & Chem 7: 11/19/21 05:38 11/19/21 05:38 Labs: Abnormal Lab Results 11/19/21 11/19/21 11/19/21 05:38 05:38 05:38 WBC 13.7 H RBC 3.64 L Hgb 10.5 L Hct 32.5 L RDW 14.6 H Plt Count 115 L MPV 12.8 H Immature Gran % (Auto) 1.0 H Neut % (Auto) 86.5 H Lymph % (Auto) 6.5 L Lymph # (Auto) 0.89 L Immature Gran # 0.13 H Absolute Neutrophils 11.81 H Carbon Dioxide Glucose 112 H Calcium 7.5 L Phosphorus 2.1 L Magnesium AST ALT 40 H Troponin T Total Protein 3.9 L Albumin 1.9 L Globulin 2.0 L Albumin/Globulin Ratio 0.9 L Procalcitonin 11/18/21 11/18/21 11/17/21 05:20 05:20 17:57 WBC 12.7 H RBC 3.63 L Hgb 10.3 L Hct 32.7 L RDW 14.7 H Plt Count 82 L MPV Immature Gran % (Auto) 2.0 H Neut % (Auto) 92.1 H Lymph % (Auto) 2.6 L Lymph # (Auto) 0.33 L Immature Gran # 0.25 H Absolute Neutrophils 11.74 H Carbon Dioxide 19 L Glucose 148 H Calcium 7.3 L Phosphorus Magnesium 2.6 H AST 53 H ALT 47 H Troponin T Total Protein 4.1 L Albumin 2.2 L Globulin 1.9 L Albumin/Globulin Ratio Procalcitonin 32.97 H 11/17/21 17:57 WBC RBC Hgb Hct RDW Plt Count MPV Immature Gran % (Auto) Neut % (Auto) Lymph % (Auto) Lymph # (Auto) Immature Gran # Absolute Neutrophils Carbon Dioxide Glucose Calcium Phosphorus Magnesium AST ALT Troponin T 0.03 H Total Protein Albumin Globulin Albumin/Globulin Ratio Procalcitonin Meds: Medications Albuterol/Ipratropium (Ipratropium/Albuterol 3 Ml Ampul.Neb) 3 ml NEB Q4HRT PRN PRN Reason: Wheezing Amiodarone HCl ([facility] Hcl 200 Mg Tablet) [facility] Last Admin: 11/19/21 08:18 Dose: 200 mg Apixaban (Apixaban 5 Mg Tablet) 5 mg PO BID [facility] Last Admin: 11/19/21 08:18 Dose: 5 mg Atorvastatin Calcium (Atorvastatin 40 Mg Tablet) 40 mg PO DAILY [facility] Last Admin: 11/19/21 08:18 Dose: 40 mg Clopidogrel Bisulfate (Clopidogrel 75 Mg Tablet) 75 mg PO DAILY [facility] Last Admin: 11/19/21 08:18 Dose: 75 mg Docusate Sodium (Docusate Sodium 100 Mg Capsule) 100 mg PO BID [facility] Last Admin: 11/19/21 08:18 Dose: 100 mg Ceftriaxone Sodium 2 gm/ (Dextrose) 50 mls @ 100 mls/hr IV Q24H [facility]; Protocol Last Infusion: 11/18/21 09:55 Dose: Infused Lactulose (Lactulose 20 Gm/30 Ml Oral.Lida) 10 gm PO DAILYP PRN PRN Reason: Constipation Morphine Sulfate (Morphine 2 Mg/Ml Vial) 4 mg IV Q4HP PRN PRN Reason: Opioid Reversal Nitroglycerin (Nitroglycerin 0.4 Mg Tab.Subl) 0.4 mg SL Q5MINP PRN PRN Reason: Angina Ondansetron HCl (Ondansetron 4 Mg/2 Ml Vial) 4 mg IV Q4HP PRN; Protocol PRN Reason: Nausea And Vomiting Oxycodone HCl (Oxycodone Hcl 5 Mg Tablet) 5 mg PO Q6HP PRN; Protocol PRN Reason: Pain Pantoprazole Sodium (Pantoprazole 40 Mg Tablet) 40 mg PO BIDAC [facility] Last Admin: 11/19/21 08:18 Dose: 40 mg Potassium Chloride (Potassium Chloride 20 Meq Tablet) 20 meq PO BIDCC [facility] Last Admin: 11/19/21 08:18 Dose: 20 meq Senna (Sennosides 1 Tablet) 2 tab PO HSP PRN PRN Reason: Constipation Sodium Chloride (0.9 % Sodium Chloride 10 Ml Syringe) 10 ml IV Q8 [facility] Last Admin: 11/19/21 05:01 Dose: 10 ml A/P Assessment and plan (1) UTI (urinary tract infection): Status: Acute (2) Severe sepsis: Status: Acute (3) Right distal ureteral calculus: Status: Acute (4) Hydronephrosis of right kidney: Status: Acute (5) Stage 1 acute kidney injury: Status: Acute (6) Ischemic cardiomyopathy: Status: Acute (7) Hypokalemia: Status: Acute (8) Anemia, normocytic normochromic: Status: Acute Narrative A/P Narrative: Assessment and Plans: 1. Right distal ureteral stone with obstruction and resultant right hydron ephrosis and hydroureter: Inpatient med surg s/p Cystoscopy with ureteral stone retrieval and right ureteral stent placement Dr. Sanchez on 11/17 2. UTI with severe sepsis: Serial lactic acid 1.1 Procalcitonin 32.97 Blood culture, no growth to date Urine culture, no growth to date cbc w/ auto diff in the morning to trend WBC Saline lock d/c Eden catheter Rocephin 3. Stage 1 acute kidney injury: Avoid nephrotoxic agents Saline lock CMP in the morning to trend kidney functions 4. Ischemic cardiomyopathy, recent: Currently asymptomatic, no chest pain no shortness of breath Serial troponin 0.03-->0.02-->0.02 Serial ECG 5. Hypokalemia: Potassium chloride oral replacement CMP in the morning to trend serum potassium level Also check serum Mg level and replace if needed 6. Anemia, normocytic normochromic: cbc w/ auto diff in the morning to trend H/H GI ppx: Protonix DVT ppx: Eliquis Code status: DNR Prognosis: Stable Disposition: inpatient med surg Time Spent With Patient Time: Total time spent is greater than 50% in coordination of care (as documented) at patient's floor/unit and/or counseling patient: QUALITY VTE Deep Vein Thrombosis/Pulmonary Embolism Present on Admission: No
[2021-11-19] MEDS: cefTRIAXone 2 GM in DEXTROSE 5% IN WATER 50 ML IV SCH (12:01)
[2021-11-19] MEDS: oxyCODONE HCL 5 MG TABLET PO PRN (20:39)
[2021-11-20] MEDS: 0.9 % SODIUM CHLORIDE 10 ML SYRINGE IV SCH ×4 (06:37→21:54)
[2021-11-20 06:42] LABS: Basophils # (Auto) 0.02 K/mcL (0.00-0.30); Basophils % (Auto) 0.2 % (0.0-2.0); Eosinophils # (Auto) 0.04 K/mcL (0.00-0.70); Eosinophils % (Auto) 0.4 % (0.0-7.0); Hematocrit 31.4 % (40.1-51.0); Hemoglobin 9.9 g/dL (13.7-17.5); Lymphocytes # (Auto) 0.75 K/mcL (1.50-4.80); Lymphocytes % (Auto) 6.6 % (15.5-49.0); Mean Cell Volume 88.7 fL (80.0-100.0); Mean Corpuscular HGB Conc 31.5 g/dL (31.0-36.0); Mean Platelet Volume 12.2 fL (8.8-12.5); Monocytes # (Auto) 0.75 K/mcL (0.10-0.90); Monocytes % (Auto) 6.6 % (1.0-12.0); Neutrophils % (Auto) 83.8 % (38.0-78.0); Platelet Count 95 K/mcL (140-440); RBC 3.54 M/mcL (4.63-6.08); Red Cell Distribution Width 14.6 % (11.5-14.5); WBC 11.4 K/mcL (4.5-11.0)
[2021-11-20 07:02] LABS: ALT/SGPT 33 U/L (<40); AST/SGOT 22 U/L (<40); Albumin 2.2 gm/dL (3.2-5.2); Albumin/Globulin Ratio 1.3 (1.0-2.3); Alkaline Phosphatase 126 U/L (39-117); Bilirubin,Total 0.2 mg/dL (0.1-1.0); Blood Urea Nitrogen 19 mg/dL (8-23); Calcium 7.5 mg/dL (8.6-10.4); Carbon Dioxide 26 mmol/L (22-30); Chloride 107 mmol/L (96-108); Globulin 1.7 gm/dL (2.2-3.7); Glomerular Filtration Rate 94; Glucose 128 mg/dL (70-105)
[2021-11-20] MEDS: PANTOPRAZOLE 40 MG TABLET PO SCH ×2 (07:38→17:10)
[2021-11-20] MEDS: AMIODARONE HCL 200 MG TABLET PO SCH ×2 (09:26→17:10)
[2021-11-20] MEDS: DOCUSATE SODIUM 100 MG CAPSULE PO SCH ×2 (09:26→21:53)
[2021-11-20] MEDS: APIXABAN 5 MG TABLET PO SCH ×2 (09:26→21:52)
[2021-11-20] MEDS: oxyCODONE HCL 5 MG TABLET PO PRN ×3 (09:26→23:48)
[2021-11-20] MEDS: ATORVASTATIN 40 MG TABLET PO SCH (09:26)
[2021-11-20] MEDS: CLOPIDOGREL 75 MG TABLET PO SCH (09:26)
[2021-11-20] MEDS: POTASSIUM CHLORIDE 20 MEQ TABLET PO SCH ×2 (09:29→17:10)
--- NOTE | 2021-11-20 09:47 | EKG ---
[facility] Test Date: 2021-11-17 Pat Name: Bryan Christianson Department: RT Room: Gender: Male [employer] Laboratory Assistant: : 1940 Requested By: Shar Jay Order Number: [id number] Reading MD: Keegan Christianson Measurements Intervals [place] Rate: 58 P: -13 VA: 56 QRS: 26 QRSD: 121 T: 173 QT: 481 QTc: 473 Interpretive Statements Sinus rhythm Short VA interval Nonspecific intraventricular conduction delay Electronically Signed On 11-20-2021 9:47:33 PDT by Keegan Christianson /store/M0/[id number]/[id number]
--- NOTE | 2021-11-20 11:42 | Internal Med Progress Note ---
SUBJECTIVE Subjective Patient information: Note initiated : 11/20/21 at 11:41 am Service Date, if different from initiated Date: [] Patient: Bryan Christianson a 81 y/o M admitted on 11/17/21 for Urosepsis. Chief Complaint: [] Principal diagnosis: Right renal stone with obstruction and urosepsis Interval history: Mr. Christianson is a 81 year old M history of ischemic cardiomyopathy, presenting to an ER in [place], [place] with a chief complaint of subjective fever and chills. The diagnosis of right 3 mm distal ureteral stone with obstructions with resultant right hydroureter and hydronephrosis, acute kidney injury, urosepsis will call. Patient denies any chest pain and serum troponin downtrending. Outside ER physician spoke with our urologist Dr. Sanchez who agreed to take the patient to the OR for ureteral stone retrieval. I am going to admit the patient for further management of urosepsis as well as acute kidney injury. 11/18: s/p Cystoscopy with ureteral stone retrieval and right ureteral stent placement. Afebrile overnight. Blood and urine cultures no growth to date. Serial troponin 0.03-->0.02-->0.02. Patient denies any pain or discomfort. He denies any fever chills or diaphoresis. Continue manual hourly irrigation severe Eden catheter. Continue Rocephin and normal saline at 100 cc/h. Continue to monitor for culture results. Transfer from PCU to med surg 11/19: There was no major overnight events. Afebrile overnight. Blood and urine cultures no growth to date. Denies penile or back pain. Denies fever, chills, or sweating. Denies nausea or vomiting. Saline lock. D/c Eden catheter. Continue Rocephin while monitoring for culture results. Physical evaluation and treatment for placement planning. 11/20: There was no major overnight events. Afebrile overnight. Blood and urine cultures no growth to date. Denies penile or back pain. Denies fever, chills, or sweating. Denies nausea or vomiting. cc/o general body weakness. c/o poor appetite. Continue Rocephin while monitoring for culture results. Physical evaluation and treatment for placement planning. Constitutional Vitals: Vital Signs Temp Pulse Resp BP Pulse Ox O2 Del Method O2 Flow Rate 36.7 C 72 18 128/63 97 2 11/20/21 07:56 11/20/21 07:56 11/20/21 07:56 11/20/21 07:56 11/20/21 07:56 11/20/21 07:56 11/20/21 07:56 Period Temp Pulse Resp BP Sys/Barkley Pulse Ox O2 Del Method O2 Flow Rate Last 24 Hr 36.5 C-36.9 C 69-77 16-20 105-128/57-70 92-99 Nasal Cannula- Nasal Cannula 2-2 Intake and Output 11/19/21 11/20/21 11/20/21 21:59 05:59 13:59 Intake Total 410 400 480 Output Total 3 2 252 Balance 407 398 228 Weight 80.286 kg Intake & Output: Intake & Output 11/19/21 11/20/21 11/20/21 21:59 05:59 13:59 Intake Total 410 400 480 Output Total 3 2 252 Balance 407 398 228 Weight 80.286 kg Intake: Nourishment/Supplement quantity 240 (ml) IV 50 Rocephin 2 gm In Dextrose 5% in 50 Water 50 ml @ 100 mls/hr IV Q24H [facility] Rx#:[id number] Oral 360 400 240 Output: Void Amount 250 # of times incontinent of urine 3 2 2 Other: Meal Dinner Percent of Meal Consumed 50% Feeding Ability Assist with Tray Set Up Urine Appearance Hematuria Hematuria Urine Color Red Brown Red Brown Blood Tinged Stool Size Large Stool Color Brown Stool Consistency Soft # Voids 1 # of times incontinent of 1 Bowels Head Head exam: Present atraumatic and normal inspection Eye Eye exam: Present normal appearance ENT ENT exam: Present mucous membranes moist, normal exam and normal external ear exam Neck Neck exam: Present normal inspection Respiratory Respiratory exam: Present normal respiratory exam Cardiovascular Cardiovascular exam: Present normal rate and rhythm GI/Abdominal GI/Abdominal exam: Present normal bowel sounds and tenderness Back Exam Back exam: Present normal inspection Neurological Exam Neurological exam: Present alert and oriented X3 Skin Skin exam: Present intact and warm OBJ DATA Labs CBC & Chem 7: 11/20/21 05:32 11/20/21 05:32 Labs: Abnormal Lab Results 11/20/21 11/20/21 11/20/21 05:32 05:32 05:32 WBC 11.4 H RBC 3.54 L Hgb 9.9 L Hct 31.4 L RDW 14.6 H Plt Count 95 L MPV Immature Gran % (Auto) 2.4 H Neut % (Auto) 83.8 H Lymph % (Auto) 6.6 L Lymph # (Auto) 0.75 L Immature Gran # 0.27 H Absolute Neutrophils 9.55 H Carbon Dioxide Anion Gap 7.0 L Creatinine 0.6 L Glucose 128 H Calcium 7.5 L Phosphorus 2.0 L Magnesium AST ALT Alkaline Phosphatase 126 H Troponin T Total Protein 3.9 L Albumin 2.2 L Globulin 1.7 L Albumin/Globulin Ratio Procalcitonin 11/19/21 11/19/21 11/19/21 05:38 05:38 05:38 WBC 13.7 H RBC 3.64 L Hgb 10.5 L Hct 32.5 L RDW 14.6 H Plt Count 115 L MPV 12.8 H Immature Gran % (Auto) 1.0 H Neut % (Auto) 86.5 H Lymph % (Auto) 6.5 L Lymph # (Auto) 0.89 L Immature Gran # 0.13 H Absolute Neutrophils 11.81 H Carbon Dioxide Anion Gap Creatinine Glucose 112 H Calcium 7.5 L Phosphorus 2.1 L Magnesium AST ALT 40 H Alkaline Phosphatase Troponin T Total Protein 3.9 L Albumin 1.9 L Globulin 2.0 L Albumin/Globulin Ratio 0.9 L Procalcitonin 11/18/21 11/18/21 11/17/21 05:20 05:20 17:57 WBC 12.7 H RBC 3.63 L Hgb 10.3 L Hct 32.7 L RDW 14.7 H Plt Count 82 L MPV Immature Gran % (Auto) 2.0 H Neut % (Auto) 92.1 H Lymph % (Auto) 2.6 L Lymph # (Auto) 0.33 L Immature Gran # 0.25 H Absolute Neutrophils 11.74 H Carbon Dioxide 19 L Anion Gap Creatinine Glucose 148 H Calcium 7.3 L Phosphorus Magnesium 2.6 H AST 53 H ALT 47 H Alkaline Phosphatase Troponin T Total Protein 4.1 L Albumin 2.2 L Globulin 1.9 L Albumin/Globulin Ratio Procalcitonin 32.97 H 11/17/21 17:57 WBC RBC Hgb Hct RDW Plt Count MPV Immature Gran % (Auto) Neut % (Auto) Lymph % (Auto) Lymph # (Auto) Immature Gran # Absolute Neutrophils Carbon Dioxide Anion Gap Creatinine Glucose Calcium Phosphorus Magnesium AST ALT Alkaline Phosphatase Troponin T 0.03 H Total Protein Albumin Globulin Albumin/Globulin Ratio Procalcitonin Meds: Medications Albuterol/Ipratropium (Ipratropium/Albuterol 3 Ml Ampul.Neb) 3 ml NEB Q4HRT PRN PRN Reason: Wheezing Amiodarone HCl (Amiodarone Hcl 200 Mg Tablet) 200 mg PO [facility]CC [facility] Last Admin: 11/20/21 09:26 Dose: 200 mg Apixaban (Apixaban 5 Mg Tablet) 5 mg PO BID [facility] Last Admin: 11/20/21 09:26 Dose: 5 mg Atorvastatin Calcium (Atorvastatin 40 Mg Tablet) 40 mg PO DAILY [facility] Last Admin: 11/20/21 09: Dose: 40 mg Clopidogrel Bisulfate (Clopidogrel 75 Mg Tablet) 75 mg PO DAILY [facility] Last Admin: 11/20/21 09:26 Dose: 75 mg Docusate Sodium (Docusate Sodium 100 Mg Capsule) 100 mg PO BID [facility] Last Admin: 11/20/21 09:26 Dose: 100 mg Ceftriaxone Sodium 2 gm/ (Dextrose) 50 mls @ 100 mls/hr IV Q24H [facility]; Protocol Last Infusion: 11/19/21 14:05 Dose: Infused Lactulose (Lactulose 20 Gm/30 Ml Oral.Lida) 10 gm PO DAILYP PRN PRN Reason: Constipation Morphine Sulfate (Morphine 2 Mg/Ml Vial) 4 mg IV Q4HP PRN PRN Reason: Opioid Reversal Nitroglycerin (Nitroglycerin 0.4 Mg Tab.Subl) 0.4 mg SL Q5MINP PRN PRN Reason: Angina Ondansetron HCl (Ondansetron 4 Mg/2 Ml Vial) 4 mg IV Q4HP PRN; Protocol PRN Reason: Nausea And Vomiting Oxycodone HCl (Oxycodone Hcl 5 Mg Tablet) 5 mg PO Q6HP PRN; Protocol PRN Reason: Pain Last Admin: 11/20/21 09:26 Dose: 5 mg Pantoprazole Sodium (Pantoprazole 40 Mg Tablet) 40 mg PO [facility]AC [facility] Last Admin: 11/20/21 07:38 Dose: 40 mg Potassium Chloride (Potassium Chloride 20 Meq Tablet) 20 meq PO BIDCC [facility] Last Admin: 11/20/21 09:29 Dose: 20 meq Senna (Sennosides 1 Tablet) 2 tab PO HSP PRN PRN Reason: Constipation Last Admin: 11/19/21 20:40 Dose: 2 tab Sodium Chloride (0.9 % Sodium Chloride 10 Ml Syringe) 10 ml IV Q8 [facility] Last Admin: 11/20/21 06:37 Dose: Not Given A/P Assessment and plan (1) UTI (urinary tract infection): Status: Acute (2) Severe sepsis: Status: Acute (3) Right distal ureteral calculus: Status: Acute (4) Hydronephrosis of right kidney: Status: Acute (5) Stage 1 acute kidney injury: Status: Acute (6) Ischemic cardiomyopathy: Status: Acute (7) Hypokalemia: Status: Acute (8) Anemia, normocytic normochromic: Status: Acute Narrative A/P Narrative: Assessment and Plans: 1. Right distal ureteral stone with obstruction and resultant right hydronephrosis and hydroureter: Inpatient med surg s/p Cystoscopy with ureteral stone retrieval and right ureteral stent placement Dr. Sanchez on 11/17 2. UTI with severe sepsis: Serial lactic acid 1.1 Procalcitonin 32.97 Blood culture, no growth to date Urine culture, no growth to date cbc w/ auto diff in the morning to trend WBC Saline lock d/c Eden catheter Rocephin 3. Stage 1 acute kidney injury: Avoid nephrotoxic agents Saline lock CMP in the morning to trend kidney functions 4. Ischemic cardiomyopathy, recent: Currently asymptomatic, no chest pain no shortness of breath Serial troponin 0.03-->0.02-->0.02 Serial ECG 5. Hypokalemia: Potassium chloride oral replacement CMP in the morning to trend serum potassium level Also check serum Mg level and replace if needed 6. Anemia, normocytic normochromic: cbc w/ auto diff in the morning to trend H/H GI ppx: Protonix DVT ppx: Eliquis Code status: DNR Prognosis: Stable Disposition: inpatient med surg Time Spent With Patient Time: Total time spent is greater than 50% in coordination of care (as documented) at patient's floor/unit and/or counseling patient: QUALITY VTE Deep Vein Thrombosis/Pulmonary Embolism Present on Admission: No
[2021-11-20] MEDS: cefTRIAXone 2 GM in DEXTROSE 5% IN WATER 50 ML IV SCH (12:49)
--- NOTE | 2021-11-20 13:06 | Internal Med Progress Note ---
SUBJECTIVE Subjective Patient information: Note initiated : 11/20/21 at 1:02 pm Service Date, if different from initiated Date: [] Patient: Bryan Christianson 81 y/o M admitted on 11/17/21 for Urosepsis. Chief Complaint: [] Principal diagnosis: Right renal stone with obstruction and urosepsis Interval history: 11/21 Main issue at this point time seems to be generalized weakness. Patient continues on ceftriaxone IV for presumed UTI. Unfortunately no urine cultures available at our facility. Preliminary blood culture showing no growth to date. Renal function has normalized. Replaced low phosphorus. Patient will likely need senior care facility for low intensity rehab. Physical exam Head: Atraumatic, normal inspection. Eyes: normal appearance, no scleral icterus. Neck: full ROM Respiratory: no respiratory distress. Cardiovascular: normal rate and rhythm, S1, S2. GI/Abdominal: soft, nontender, no guarding. Extremities: full range of motion, nontender. Neurological: CN II-XII intact, intact motor, intact sensation. Psychiatric: normal mood. Skin: warm, normal color Constitutional Vitals: Vital Signs Temp Pulse Resp BP Pulse Ox O2 Del Method O2 Flow Rate 98.0 F 70 18 130/60 95 2 11/20/21 12:00 11/20/21 12:00 11/20/21 12:00 11/20/21 12:00 11/20/21 12:00 11/20/21 12:00 11/20/21 07:56 Period Temp Pulse Resp BP Sys/Barkley Pulse Ox O2 Del Method O2 Flow Rate Last 24 Hr 98.0 F-98.4 F 69-77 16-20 105-130/60-70 95-99 Nasal Cannula-Room Air 2-2 Intake and Output 11/19/21 11/20/21 11/20/21 21:59 05:59 13:59 Intake Total 410 400 480 Output Total 3 2 252 Balance 407 398 228 Weight 80.286 kg Intake & Output: Intake & Output 11/19/21 11/20/21 11/20/21 21:59 05:59 13:59 Intake Total 410 400 480 Output Total 3 2 252 Balance 407 398 228 Weight 80.286 kg Intake: Nourishment/Supplement quantity 240 (ml) IV 50 Rocephin 2 gm In Dextrose 5% in 50 Water 50 ml @ 100 mls/hr IV Q24H [facility] Rx#:[id number] Oral 360 400 240 Output: Void Amount 250 # of times incontinent of urine 3 2 2 Other: Meal Dinner Percent of Meal Consumed 50% Feeding Ability Assist with Tray Set Up Urine Appearance Hematuria Hematuria Urine Color Red Brown Red Brown Blood Tinged Stool Size Large Stool Color Brown Stool Consistency Soft # Voids 1 # of times incontinent of 1 Bowels OBJ DATA Labs CBC & Chem 7: 11/21/21 05:17 11/21/21 05:17 Labs: Abnormal Lab Results 11/20/21 11/20/21 11/20/21 05:32 05:32 05:32 WBC 11.4 H RBC 3.54 L Hgb 9.9 L Hct 31.4 L RDW 14.6 H Plt Count 95 L MPV Immature Gran % (Auto) 2.4 H Neut % (Auto) 83.8 H Lymph % (Auto) 6.6 L Lymph # (Auto) 0.75 L Immature Gran # 0.27 H Absolute Neutrophils 9.55 H Carbon Dioxide Anion Gap 7.0 L Creatinine 0.6 L Glucose 128 H Calcium 7.5 L Phosphorus 2.0 L Magnesium AST ALT Alkaline Phosphatase 126 H Troponin T Total Protein 3.9 L Albumin 2.2 L Globulin 1.7 L Albumin/Globulin Ratio Procalcitonin 11/19/21 11/19/21 11/19/21 05:38 05:38 05:38 WBC 13.7 H RBC 3.64 L Hgb 10.5 L Hct 32.5 L RDW 14.6 H Plt Count 115 L MPV 12.8 H Immature Gran % (Auto) 1.0 H Neut % (Auto) 86.5 H Lymph % (Auto) 6.5 L Lymph # (Auto) 0.89 L Immature Gran # 0.13 H Absolute Neutrophils 11.81 H Carbon Dioxide Anion Gap Creatinine Glucose 112 H Calcium 7.5 L Phosphorus 2.1 L Magnesium AST ALT 40 H Alkaline Phosphatase Troponin T Total Protein 3.9 L Albumin 1.9 L Globulin 2.0 L Albumin/Globulin Ratio 0.9 L Procalcitonin 11/18/21 11/18/21 11/17/21 05:20 05:20 17:57 WBC 12.7 H RBC 3.63 L Hgb 10.3 L Hct 32.7 L RDW 14.7 H Plt Count 82 L MPV Immature Gran % (Auto) 2.0 H Neut % (Auto) 92.1 H Lymph % (Auto) 2.6 L Lymph # (Auto) 0.33 L Immature Gran # 0.25 H Absolute Neutrophils 11.74 H Carbon Dioxide 19 L Anion Gap Creatinine Glucose 148 H Calcium 7.3 L Phosphorus Magnesium 2.6 H AST 53 H ALT 47 H Alkaline Phosphatase Troponin T Total Protein 4.1 L Albumin 2.2 L Globulin 1.9 L Albumin/Globulin Ratio Procalcitonin 32.97 H 11/17/21 17:57 WBC RBC Hgb Hct RDW Plt Count MPV Immature Gran % (Auto) Neut % (Auto) Lymph % (Auto) Lymph # (Auto) Immature Gran # Absolute Neutrophils Carbon Dioxide Anion Gap Creatinine Glucose Calcium Phosphorus Magnesium AST ALT Alkaline Phosphatase Troponin T 0.03 H Total Protein Albumin Globulin Albumin/Globulin Ratio Procalcitonin Meds: Medications Albuterol/Ipratropium (Ipratropium/Albuterol 3 Ml Ampul.Neb) 3 ml NEB Q4HRT PRN PRN Reason: Wheezing Amiodarone HCl ([facility] Hcl 200 Mg Tablet) [facility] Admin: 11/20/21 09:26 Dose: 200 mg Apixaban (Apixaban 5 Mg Tablet) 5 mg PO BID [facility] Last Admin: 11/20/21 09:26 Dose: 5 mg Atorvastatin Calcium (Atorvastatin 40 Mg Tablet) 40 mg PO DAILY [facility] Last Admin: 11/20/21 09:26 Dose: 40 mg Clopidogrel Bisulfate (Clopidogrel 75 Mg Tablet) 75 mg PO DAILY [facility] Last Admin: 11/20/21 09:26 Dose: 75 mg Docusate Sodium (Docusate Sodium 100 Mg Capsule) 100 mg PO BID [facility] Last Admin: 11/20/21 09:26 Dose: 100 mg Ceftriaxone Sodium 2 gm/ (Dextrose) 50 mls @ 100 mls/hr IV Q24H [facility]; Protocol Last Admin: 11/20/21 12:49 Dose: 100 mls/hr Lactulose (Lactulose 20 Gm/30 Ml Oral.Lida) 10 gm PO DAILYP PRN PRN Reason: Constipation Morphine Sulfate (Morphine 2 Mg/Ml Vial) 4 mg IV Q4HP PRN PRN Reason: Opioid Reversal Nitroglycerin (Nitroglycerin 0.4 Mg Tab.Subl) 0.4 mg SL Q5MINP PRN PRN Reason: Angina Ondansetron HCl (Ondansetron 4 Mg/2 Ml Vial) 4 mg IV Q4HP PRN; Protocol PRN Reason: Nausea And Vomiting Oxycodone HCl (Oxycodone Hcl 5 Mg Tablet) 5 mg PO Q6HP PRN; Protocol PRN Reason: Pain Last Admin: 11/20/21 09:26 Dose: 5 mg Pantoprazole Sodium (Pantoprazole 40 Mg Tablet) 40 mg PO BIDAC [facility] Last Admin: 11/20/21 07:38 Dose: 40 mg Potassium Chloride (Potassium Chloride 20 Meq Tablet) 20 meq PO BIDCC [facility] Last Admin: 11/20/21 09:29 Dose: 20 meq Senna (Sennosides 1 Tablet) 2 tab PO HSP PRN PRN Reason: Constipation Last Admin: 11/19/21 20:40 Dose: 2 tab Sodium Chloride (0.9 % Sodium Chloride 10 Ml Syringe) 10 ml IV Q8 [facility] Last Admin: 11/20/21 12:49 Dose: 10 ml A/P Assessment and plan (1) UTI (urinary tract infection): Status: Acute (2) Severe sepsis: Status: Acute (3) Right distal ureteral calculus: Status: Acute (4) Hydronephrosis of right kidney: Status: Acute (5) Stage 1 acute kidney injury: Status: Acute (6) Ischemic cardiomyopathy: Status: Acute (7) Hypokalemia: Status: Acute (8) Anemia, normocytic normochromic: Status: Acute Narrative A/P Narrative: Assessment and Plans: 1. Right distal ureteral stone with obstruction and resultant right hydronephrosis and hydroureter: Inpatient med surg s/p Cystoscopy with ureteral stone retrieval and right ureteral stent placement Dr. Sanchez on 11/17 2. Presumed UTI with severe sepsis: Serial lactic acid 1.1 Procalcitonin 32.97, repeat tomorrow Blood culture, no growth to date Urine culture from OSH reportedly showing no growth to date cbc w/ auto diff in the morning to trend WBC Rocephin 3. Resolved acute kidney injury: Avoid nephrotoxic agents 4. Ischemic cardiomyopathy, recent: Currently asymptomatic, no chest pain no shortness of breath Serial troponin 0.03-->0.02-->0.02 Serial ECG 5. Hypokalemia: Potassium chloride oral replacement CMP in the morning to trend serum potassium level Also check serum Mg level and replace if needed 6. Anemia, normocytic normochromic: cbc w/ auto diff in the morning to trend H/H GI ppx: Protonix DVT ppx: Eliquis Code status: DNR Prognosis: Stable Disposition: Likely low intensity rehab at SNF. Follow-up with urology after discharge for ureteral stent removal. Time Spent With Patient Time: Total time spent is greater than 50% in coordination of care (as documented) at patient's floor/unit and/or counseling patient: QUALITY VTE Deep Vein Thrombosis/Pulmonary Embolism Present on Admission: No
[2021-11-21] MEDS: 0.9 % SODIUM CHLORIDE 10 ML SYRINGE IV SCH ×3 (04:05→21:10)
[2021-11-21] MEDS: oxyCODONE HCL 5 MG TABLET PO PRN ×2 (05:34→16:49)
[2021-11-21 06:38] LABS: Basophils # (Auto) 0.05 K/mcL (0.00-0.30); Basophils % (Auto) 0.4 % (0.0-2.0); Eosinophils # (Auto) 0.07 K/mcL (0.00-0.70); Eosinophils % (Auto) 0.6 % (0.0-7.0); Hematocrit 31.2 % (40.1-51.0); Hemoglobin 10.1 g/dL (13.7-17.5); Lymphocytes # (Auto) 0.88 K/mcL (1.50-4.80); Lymphocytes % (Auto) 7.2 % (15.5-49.0); Mean Cell Volume 86.7 fL (80.0-100.0); Mean Corpuscular HGB Conc 32.4 g/dL (31.0-36.0); Monocytes # (Auto) 0.92 K/mcL (0.10-0.90); Monocytes % (Auto) 7.5 % (1.0-12.0); Neutrophils % (Auto) 78.1 % (38.0-78.0); Platelet Count 116 K/mcL (140-440); Red Cell Distribution Width 14.6 % (11.5-14.5); WBC 12.2 K/mcL (4.5-11.0)
[2021-11-21 07:04] LABS: ALT/SGPT 34 U/L (<40); AST/SGOT 27 U/L (<40); Albumin 2.1 gm/dL (3.2-5.2); Albumin/Globulin Ratio 1.2 (1.0-2.3); Alkaline Phosphatase 91 U/L (39-117); Bilirubin,Total 0.5 mg/dL (0.1-1.0); Blood Urea Nitrogen 13 mg/dL (8-23); Calcium 7.3 mg/dL (8.6-10.4); Carbon Dioxide 27 mmol/L (22-30); Chloride 104 mmol/L (96-108); Globulin 1.8 gm/dL (2.2-3.7); Glomerular Filtration Rate 101; Glucose 106 mg/dL (70-105)
[2021-11-21] MEDS: PANTOPRAZOLE 40 MG TABLET PO SCH ×2 (07:33→16:49)
[2021-11-21] MEDS: AMIODARONE HCL 200 MG TABLET PO SCH ×2 (09:55→16:49)
[2021-11-21] MEDS: POTASSIUM CHLORIDE 20 MEQ TABLET PO SCH (09:55)
[2021-11-21] MEDS: ATORVASTATIN 40 MG TABLET PO SCH (09:56)
[2021-11-21] MEDS: CLOPIDOGREL 75 MG TABLET PO SCH (09:56)
[2021-11-21] MEDS: APIXABAN 5 MG TABLET PO SCH ×2 (09:56→20:58)
[2021-11-21] MEDS: DOCUSATE SODIUM 100 MG CAPSULE PO SCH ×2 (09:56→20:58)
[2021-11-21] MEDS: cefTRIAXone 2 GM in DEXTROSE 5% IN WATER 50 ML IV SCH (10:51)
[2021-11-21] MEDS ORDERED: POTASSIUM PHOSPHATE 40 MEQ in DEXTROSE 5% IN WATER 500 ML IV ONE (11:19)
[2021-11-22] MEDS: 0.9 % SODIUM CHLORIDE 10 ML SYRINGE IV SCH (05:07)
[2021-11-22 07:10] LABS: Basophils # (Auto) 0.03 K/mcL (0.00-0.30); Basophils % (Auto) 0.2 % (0.0-2.0); Eosinophils # (Auto) 0.11 K/mcL (0.00-0.70); Eosinophils % (Auto) 0.8 % (0.0-7.0); Hematocrit 30.8 % (40.1-51.0); Hemoglobin 9.9 g/dL (13.7-17.5); Lymphocytes % (Auto) 7.4 % (15.5-49.0); Mean Cell Volume 86.8 fL (80.0-100.0); Mean Corpuscular HGB Conc 32.1 g/dL (31.0-36.0); Mean Platelet Volume 11.5 fL (8.8-12.5); Monocytes # (Auto) 1.08 K/mcL (0.10-0.90); Platelet Count 141 K/mcL (140-440); RBC 3.55 M/mcL (4.63-6.08); Red Cell Distribution Width 14.6 % (11.5-14.5); WBC 13.5 K/mcL (4.5-11.0)
[2021-11-22 07:18] LABS: Phosphorous 2.5 mg/dL (2.5-4.5)
[2021-11-22 07:20] LABS: ALT/SGPT 37 U/L (<40); AST/SGOT 28 U/L (<40); Albumin/Globulin Ratio 1.1 (1.0-2.3); Alkaline Phosphatase 93 U/L (39-117); Bilirubin,Total 0.5 mg/dL (0.1-1.0); Blood Urea Nitrogen 9 mg/dL (8-23); Calcium 7.3 mg/dL (8.6-10.4); Carbon Dioxide 27 mmol/L (22-30); Chloride 101 mmol/L (96-108); Globulin 1.9 gm/dL (2.2-3.7); Glomerular Filtration Rate 101; Glucose 98 mg/dL (70-105)
[2021-11-22] MEDS: AMIODARONE HCL 200 MG TABLET PO SCH (08:33)
[2021-11-22] MEDS: ATORVASTATIN 40 MG TABLET PO SCH (08:33)
[2021-11-22] MEDS: PANTOPRAZOLE 40 MG TABLET PO SCH (08:33)
[2021-11-22] MEDS: APIXABAN 5 MG TABLET PO SCH (08:33)
[2021-11-22] MEDS: DOCUSATE SODIUM 100 MG CAPSULE PO SCH (08:33)
[2021-11-22] MEDS: CLOPIDOGREL 75 MG TABLET PO SCH (08:33)
[2021-11-22] MEDS: cefTRIAXone 2 GM in DEXTROSE 5% IN WATER 50 ML IV SCH (08:43)
--- NOTE | 2021-11-22 11:11 | Discharge Summary ---
Discharge Provider Provider IMPORTANT FOLLOW-UP INFORMATION FOR PCP: Patient information: Note initiated : 11/22/21 at 11:05 am Service Date, if different from initiated Date: [] Patient: Bryan Christianson 81 y/o M admitted on 11/17/21 for Urosepsis. Chief Complaint: [] Date of admission: 11/17/21 17:58 Discharge date: 11/22/21 Consults: 11/17/21 17:12 Consult to Physician [CONS] Stat Comment: Consulting Provider: Singh Sanchez Reason For Exam: Physician to Consult COURSE Hospital Course Hospital course: Mr. Christianson is a 81 year old M history of ischemic cardiomyopathy, presenting to an ER in [place], [place] with a chief complaint of subjective fever and chills. The diagnosis of right 3 mm distal ureteral stone with obstructions with resultant right hydroureter and hydronephrosis, acute kidney injury, urosepsis will call. Patient denies any chest pain and serum troponin downtrending. Outside ER physician spoke with our urologist Dr. Sanchez who agreed to take the patient to the OR for ureteral stone retrieval. I am going to admit the patient for further management of urosepsis as well as acute kidney injury. 11/18: s/p Cystoscopy with ureteral stone retrieval and right ureteral stent placement. Afebrile overnight. Blood and urine cultures no growth to date. Serial troponin 0.03-->0.02-->0.02. Patient denies any pain or discomfort. He denies any fever chills or diaphoresis. Continue manual hourly irrigation severe Eden catheter. Continue Rocephin and normal saline at 100 cc/h. Continue to monitor for culture results. Transfer from PCU to med surg 11/19: There was no major overnight events. Afebrile overnight. Blood and urine cultures no growth to date. Denies penile or back pain. Denies fever, chills, or sweating. Denies nausea or vomiting. Saline lock. D/c Eden catheter. Continue Rocephin while monitoring for culture results. Physical evaluation and treatment for placement planning. 11/20: There was no major overnight events. Afebrile overnight. Blood and urine cultures no growth to date. Denies penile or back pain. Denies fever, chills, or sweating. Denies nausea or vomiting. cc/o general body weakness. c/o poor appetite. Continue Rocephin while monitoring for culture results. Physical evaluation and treatment for placement planning. 11/21 Afebrile overnight. Main issue at this point time is generalized weakness for which the patient will require low intensity rehab. Patient continues on ceftriaxone IV for UTI. Unfortunately no urine cultures available at our facility at admission, will follow up on urine culture results from tomorrow. Preliminary blood culture at [facility] showing no growth to date. Renal function has normalized. Replaced low phosphorus. 11/22 Requiring some oxygen supplementation via nasal cannula, no signs of respiratory distress, afebrile. Obtained urine culture results from which grew Klebsiella pneumonia resistant to ampicillin, otherwise sensitive to all antibiotics including ceftriaxone. Plan is to discharge the patient to swing bed at . Transition to [facility] for UTI, will continue for a 14-day treatment course for pyelonephritis and right ureteral stent for which the patient will see urology after discharge for removal. Resumed home medications at discharge except potassium supplementation as potassium level was normal. Patient was previously on Eliquis as well as Plavix, continued as before. Discharged to a swing bed for rehab. Physical exam Head: Atraumatic, normal inspection. Eyes: normal appearance, no scleral icterus. Neck: full ROM Respiratory: Nasal cannula oxygen supplementation 2 to 3 L/min, no respiratory distress. Cardiovascular: normal rate and rhythm, S1, S2. GI/Abdominal: soft, nontender, no guarding. Extremities: full range of motion, nontender. Neurological: CN II-XII intact, intact motor, intact sensation. Psychiatric: normal mood. Skin: warm, normal color Discharge diagnosis: Severe sepsis secondary to pyelonephritis Time Spent with Patient Time attestation: Total time spent providing and/or coordinating discharge services: Time spent: Greater than 30 minutes EXAM Constitutional Vitals: Temp Pulse Resp BP Pulse Ox O2 Del Method O2 Flow Rate 98.4 F 71 18 121/71 96 3 11/22/21 07:50 11/22/21 07:50 11/22/21 07:50 11/22/21 07:50 11/22/21 07:50 11/22/21 07:50 11/22/21 07:50 Discharge Data Data Completed and Pending Labs on day of discharge: Labs from last 24 hours 11/22/21 11/22/21 11/22/21 05:44 05:44 05:44 WBC RBC Hgb Hct MCV MCH MCHC RDW Plt Count MPV Immature Gran % (Auto) Neut % (Auto) Lymph % (Auto) [place] % (Auto) Eos % (Auto) Baso % (Auto) Lymph # (Auto) [place] # (Auto) Eos # (Auto) Baso # (Auto) Immature Gran # Absolute Neutrophils Sodium 135 Potassium 4.6 Chloride 101 Carbon Dioxide 27 Anion Gap 7.0 L BUN 9 Creatinine 0.5 L GFR Calculation 101 Glucose 98 Calcium 7.3 L Phosphorus 2.5 Magnesium 1.7 Total Bilirubin 0.5 AST 28 ALT 37 Alkaline Phosphatase 93 Total Protein 3.9 L Albumin 2.0 L Globulin 1.9 L Albumin/Globulin Ratio 1.1 Procalcitonin 0.86 H 11/22/21 05:44 WBC 13.5 H RBC 3.55 L Hgb 9.9 L Hct 30.8 L MCV 86.8 MCH 27.9 MCHC 32.1 RDW 14.6 H Plt Count 141 MPV 11.5 Immature Gran % (Auto) 6.6 H Neut % (Auto) 77.0 Lymph % (Auto) 7.4 L [place] % (Auto) 8.0 Eos % (Auto) 0.8 Baso % (Auto) 0.2 Lymph # (Auto) 1.00 L [place] # (Auto) 1.08 H Eos # (Auto) 0.11 Baso # (Auto) 0.03 Immature Gran # 0.89 H Absolute Neutrophils 10.37 H Sodium Potassium Chloride Carbon Dioxide Anion Gap BUN Creatinine GFR Calculation Glucose Calcium Phosphorus Magnesium Total Bilirubin AST ALT Alkaline Phosphatase Total Protein Albumin Globulin Albumin/Globulin Ratio Procalcitonin Preliminary micro results at discharge 11/17/21 18:25 Blood Culture - Preliminary Blood 11/17/21 17:57 Blood Culture - Preliminary Blood Discharge Plan Patient/Caregiver Discharge Instructions Activity: increase activity as tolerated Diet: Regular Diet Prescriptions: New cefdinir 300 mg capsule 300 mg PO BID 9 Days Qty: 18 0RF Continued amiodarone [Pacerone] 200 mg tablet 1 tab PO BID atorvastatin [Lipitor] 40 mg tablet 40 tab PO QAM Label Comments: [NO ORIGINAL SIG] clopidogrel [Plavix] 75 mg tablet 1 tab PO QDAY pantoprazole [Protonix] 40 mg tablet,delayed release (/EC) 1 tab PO BID nitroglycerin [Nitrostat] 0.4 mg tablet, sublingual 0.4 tab sublingual Q5MINP PRN (Reason: Angina) oxycodone [Roxicodone] 5 mg tablet 5 tab PO Q6HP PRN (Reason: Pain) Eliquis 5 mg tablet 1 tab PO BID Discontinued potassium chloride [Klor-Con M20] 20 mEq Tablet,Er Particles/Crystals 20 meq PO BIDAC Follow Up Plan Follow up with: Singh Sanchez MD [Physician] - (Follow up post right ureteral stent placement 11/17/21. ) Patient Disposition: [facility] Swing Bed Rehab Potential: Fair I certify that the patient requires SNF services: Yes Overall status at discharge: patient is progressing back to baseline Discharge Orders: Discharge Order (Routine); Ordered 11/22/21 Ordered By: Jaylon BUCHANAN VTE Deep Vein Thrombosis/Pulmonary Embolism Present on Admission: No
== END 2021-11-22 14:20 | disposition other institution (70) | DRG 854 ==
LOC: ICU 17:58 → MEDSUR 11-19 17:25
PROVIDERS: ADMIT Internal Medicine; ATTEND Internal Medicine